=== PATIENT | male | born 1975 | race Caucasian/White ===

== ENCOUNTER 2021-04-23 07:20 | Observation (INO) ==
--- NOTE | 2021-04-23 07:53 | Emergency Department Note ---
History of Present Illness General Chief complaint: Swelling/Edema to Extremity Stated complaint: RETAINING FLUID Time Seen by Provider: 04/23/21 07:35 History of Present Illness 45-year-old male presents to the ED with a chief complaint of exertional dyspnea and increased edema and decreased urine output. The patient states that he has had the symptoms for about 1-1/2 weeks. He reports decreased appetite and some generalized weakness as well as some nausea for about 6 weeks. The patient reports a history of ALL years ago he has gone through treatment and denies any current medical issues other than hypothyroidism. He also reports that recently he has been off his thyroid medication since October due to changes in insurance. He recently restarted it on Saturday. He had a 1 month prescription from a [facility] provider. Home Medications Medication Instructions Recorded Confirmed Type escitalopram oxalate 10 mg tablet 10 mg PO DAILY #30 tab 12/29/19 04/23/21 Rx levothyroxine 50 mcg capsule 50 mcg PO DAILY #30 cap 12/29/19 04/23/21 Rx diphenhydramine 25 1 tab PO Q6H PRN 04/23/21 04/23/21 History mg-acetaminophen 500 mg tablet (Tylenol PM Extra Strength) Allergies Allergy/AdvReac Type Severity Reaction Status Date / Time Cipro AdvReac "agitated" Verified 12/09/12 13:43 ciprofloxacin AdvReac "agitated" Verified 12/29/19 15:33 cyclobenzaprine AdvReac sleep Verified 12/29/19 15:33 [From Flexeril] disturbance diazepam AdvReac "crying" Verified 12/29/19 15:33 Past Med/Surg History Medical History (Updated 04/23/21 @ 10:56 by Yair Griffith MD) ALL (acute lymphocytic leukemia) Anemia Cataracts, bilateral Depression Dyslipidemia Encounter for central line placement Grand mal seizure Hypothyroidism Peripheral neuropathy Shingles Surgical History S/P wisdom tooth extraction Family History Father Diabetes Hypertension Hyperlipidemia Grandmother (Paternal) Cancer brain cancer Mother Breast cancer Cancer non-hodgkins lympoma, ovarian cancer Grandfather (Paternal) Cancer prostate Aunt Cancer 1 maternal aunt with ovarian cancer Breast cancer 2 aunts (maternal) with breast cancer Social History Smoking Status: Never smoker Hx Alcohol Use: Yes (1 scotch a month) Alcohol type: hard liquor Hx Substance Use: No Preferred Language: Cymraes Feels Safe at Home: Yes Review of Systems A total of 10 systems reviewed and were otherwise negative Physical Exam Vital Signs Vital Signs - 24 hr 04/23/21 07:22 04/23/21 09:20 Temperature 37 C Temperature Source Temporal Artery Scan Pulse Rate 100 H Pulse Rate [Left Finger] 86 Pulse Rhythm [Left Finger] Regular Pulse Strength [Left Finger] Normal Respiratory Rate 22 20 Respiratory Effort / Characteristics Non-Labored Spontaneous Respiratory Depth Normal Respiratory Pattern Regular Blood Pressure 150/85 H Blood Pressure [Left Arm] 140/76 Blood Pressure Mean 106 Blood Pressure Mean [Left Arm] 97 Blood Pressure Position Sitting Blood Pressure Position [Left Arm] Sitting Pulse Oximetry 97 98 Oxygen Delivery Method Room Air Sepsis Recent Fever Within 48 Hours No Sepsis New/Unexplained Change in Mental Status No Sepsis Action Taken by Nursing No Action Required CONSTITUTIONAL/VITAL SIGNS: Reviewed / noted above. GENERAL: Non-toxic in appearance. INTEGUMENTARY: Warm, dry, and [place]. HEAD: Normocephalic. EYES: without scleral icterus or trauma. ENT/OROPHARYNX: clear and moist. LYMPHADENOPATHY/NECK: Is supple without lymphadenopathy or meningismus. RESPIRATORY: Clear to auscultation bilaterally. No increased work of breathing. CARDIOVASCULAR: Regular rate and rhythm. GI/ABDOMEN: Soft and nontender. No organomegaly or pulsatile mass. EXTREMITIES: Warm and well perfused. The patient does have bilateral symmetric pedal edema. BACK: No CVA tenderness. NEUROLOGICAL: Intact without focal deficits. PSYCHIATRIC: normal affect. MUSCULOSKELETAL: Normally developed with good muscle tone. TRIAGE NURSING DOCUMENTATION REVIEWED. Course Administered Medications Discontinued Medications Ioversol (Optiray 320 125ml) 120 ml IV ONCE ONE Stop: 04/23/21 09:40 Last Admin: 04/23/21 09:39 Dose: 120 ml Documented by: [id number] Medical Decision Making Differential Diagnosis The differential was considered includes acute myocardial infarction, acute coronary syndrome, myocarditis, pericarditis, pericardial effusions /tamponad, esophageal perforation, pulmonary embolism, pneumonia, pneumothorax, cardiomyopathy, congestive heart, anemia , COPD/asthma exacerbation. Differential includes acute coronary syndrome, myocardial infarction, CVA, TIA, anemia, infection, pneumonia, UTI, pyelonephritis, poor nutrition, dehydration, electrolyte disturbance,hypoglycemia. Medical Records Attestation: I reviewed the patient's medical records. Home Medications Current Medication List: was personally reviewed by me Laboratory Data Attestation: I reviewed the patient's lab results. Result diagrams: 04/23/21 08:25 04/23/21 08:25 Lab Results 04/23/21 04/23/21 04/23/21 Range/Units 08:25 08:25 08:25 WBC 9.93 (4.8-10.8) K/uL RBC 4.75 (4.7-6.1) M/uL Hgb 13.1 L (14.0-18.0) g/dL Hct 41.7 L (42-52) % MCV 87.8 (80-100) fL MCH 27.6 (25-34) pg MCHC 31.4 L (32-36) g/dL RDW Std Deviation 46.0 (36.4-46.3) fL RDW Coeff of [place] 14.3 (11.5-14.5) % Plt Count 224 (130-400) K/uL MPV 11.5 H (7.4-10.4) fL Immature Gran % (Auto) 0.2 % Neut % (Auto) 61.6 % Lymph % (Auto) 27.0 % [place] % (Auto) 8.1 % Eos % (Auto) 2.7 % Baso % (Auto) 0.4 % Neut # (Auto) 6.12 (1.4-6.5) K/uL Lymph # (Auto) 2.68 (1.2-3.4) K/uL [place] # (Auto) 0.80 H (0.11-0.59) K/uL Eos # (Auto) 0.27 (0-0.5) K/uL Baso # (Auto) 0.04 (0-0.2) K/uL Immature Gran # (Auto) 0.02 (0.00-0.02) K/uL PT 11.9 (9.0-12.0) Seconds INR 1.2 H (0.9-1.1) APTT 22.5 (21.0-31.0) Seconds PTT Ratio 0.9 D-Dimer 5230 H* (0-500) ug/L FEU Sodium 141 (136-145) mmol/L Potassium 3.7 (3.5-5.1) mmol/L Chloride 110 H (98-107) mmol/L Carbon Dioxide 21 (21-32) mmol/L Anion Gap 10.0 (3-11) BUN 13 (7-18) mg/dl Creatinine 1.20 (0.6-1.4) mg/dl Est Cr Clr Drug Dosing 121.9 ml/min Est GFR ( Amer) 85.3 ml/min Est GFR (Non-Af Amer) 73.6 ml/min BUN/Creatinine Ratio 11.2 (10-20) Glucose 94 (70-99) mg/dl Calcium 8.7 (8.5-10.1) mg/dl Magnesium 1.9 (1.8-2.4) mg/dl Total Bilirubin 0.9 (0.2-1) mg/dl AST 38 H (15-37) U/L ALT 48 (12-78) U/L Alkaline Phosphatase 75 (45-117) U/L Troponin I 0.036 (0-0.045) ng/ml NT-Pro-B Natriuret Pep 3521 H (0-450) pg/ml Total Protein 6.9 (6.4-8.2) gm/dl Albumin 3.1 L (3.4-5.0) gm/dl Globulin 3.8 (2.5-4.0) gm/dl Albumin/Globulin Ratio 0.8 L (0.9-2) TSH 8.080 H (0.300-4.500) uIu/ml Free T4 1.26 (0.8-1.6) ng/dl Urine Color Urine Appearance (Clear) Urine pH (4.5-7.5) Ur Specific [place] (1.000-1.030) Urine Protein (Negative) Urine Glucose (UA) (Negative) Urine Ketones (Negative) Urine Blood (Negative) Urine Nitrite (Negative) Urine Bilirubin (Negative) Urine Urobilinogen (Negative) Ur Leukocyte Esterase (Negative) Urine WBC (Auto) (0-5) /hpf Urine RBC (Auto) (0-4) /hpf U Hyaline Cast (Auto) (0-5) /lpf U Epithel Cells (Auto) (0-5) /lpf Urine Bacteria (Auto) (Negative) COVID-19 Eval Order SARS-CoV-2 (PCR) (Negative) 04/23/21 04/23/21 04/23/21 Range/Units 08:36 08:52 08:52 WBC (4.8-10.8) K/uL RBC (4.7-6.1) M/uL Hgb (14.0-18.0) g/dL Hct (42-52) % MCV (80-100) fL MCH (25-34) pg MCHC (32-36) g/dL RDW Std Deviation (36.4-46.3) fL RDW Coeff of [place] (11.5-14.5) % Plt Count (130-400) K/uL MPV (7.4-10.4) fL Immature Gran % (Auto) % Neut % (Auto) % Lymph % (Auto) % [place] % (Auto) % Eos % (Auto) % Baso % (Auto) % Neut # (Auto) (1.4-6.5) K/uL Lymph # (Auto) (1.2-3.4) K/uL [place] # (Auto) (0.11-0.59) K/uL Eos # (Auto) (0-0.5) K/uL Baso # (Auto) (0-0.2) K/uL Immature Gran # (Auto) (0.00-0.02) K/uL PT (9.0-12.0) Seconds INR (0.9-1.1) APTT (21.0-31.0) Seconds PTT Ratio D-Dimer (0-500) ug/L FEU Sodium (136-145) mmol/L Potassium (3.5-5.1) mmol/L Chloride (98-107) mmol/L Carbon Dioxide (21-32) mmol/L Anion Gap (3-11) BUN (7-18) mg/dl Creatinine (0.6-1.4) mg/dl Est Cr Clr Drug Dosing ml/min Est GFR ( Amer) ml/min Est GFR (Non-Af Amer) ml/min BUN/Creatinine Ratio (10-20) Glucose (70-99) mg/dl Calcium (8.5-10.1) mg/dl Magnesium (1.8-2.4) mg/dl Total Bilirubin (0.2-1) mg/dl AST (15-37) U/L ALT (12-78) U/L Alkaline Phosphatase (45-117) U/L Troponin I (0-0.045) ng/ml NT-Pro-B Natriuret Pep (0-450) pg/ml Total Protein (6.4-8.2) gm/dl Albumin (3.4-5.0) gm/dl Globulin (2.5-4.0) gm/dl Albumin/Globulin Ratio (0.9-2) TSH (0.300-4.500) uIu/ml Free T4 (0.8-1.6) ng/dl Urine Color Dark Yellow Urine Appearance Clear (Clear) Urine pH 5.5 (4.5-7.5) Ur Specific [place] 1.021 (1.000-1.030) Urine Protein 3+ H (Negative) Urine Glucose (UA) Negative (Negative) Urine Ketones Trace H (Negative) Urine Blood Negative (Negative) Urine Nitrite Negative (Negative) Urine Bilirubin Negative (Negative) Urine Urobilinogen Negative (Negative) Ur Leukocyte Esterase Negative (Negative) Urine WBC (Auto) 1-5 (0-5) /hpf Urine RBC (Auto) 0-4 (0-4) /hpf U Hyaline Cast (Auto) 1-5 (0-5) /lpf U Epithel Cells (Auto) 20-30 H (0-5) /lpf Urine Bacteria (Auto) Negative (Negative) COVID-19 Eval Order Covid19 at [facility] SARS-CoV-2 (PCR) NEGATIVE (Negative) Imaging Data Radiologist's Impression: Chest X-Ray 04/23/21 07:45 XR chest 1V portable CLINICAL HISTORY: Dyspnea TECHNIQUE: Single frontal radiograph of the chest was obtained. Comparison: Comparison is made to chest one view 01/08/2020 FINDINGS: No lines and tubes are seen. Cardiomegaly is noted. The lungs are clear. No evidence of pleural effusion or pneumothorax. IMPRESSION: No acute chest disease. ACT 112: Negative or not required by law. Electronically signed by: Luis Estrada M.D. 04/23/2021 8:05 AM Chest CTA 04/23/21 08:57 CT angio chest PE protocol CLINICAL HISTORY: sob,r/o pe TECHNIQUE: Multidetector row helical CT of the chest was performed. Coronal and sagittal reformations were obtained. Automated dose lowering techniques and/or adjustment according to patient size were utilized for this exam. Comparison: Comparison is made to CT chest 08/05/2007 FINDINGS: Lungs and pleura: There are small bilateral pleural effusions, right greater than left, with underlying atelectasis. Heart and pericardium: There is cardiomegaly without evidence of pericardial effusion. Physiologic pericardial fluid is seen. There is reflux of contrast into the inferior vena cava. Vessels: No evidence of pulmonary embolism. Mediastinum and tatum: Subcentimeter lymph nodes are seen. Chest wall and lower neck: Unremarkable. Abdomen: A hiatal hernia is seen. Bones: Degenerative changes in the thoracic spine. IMPRESSION: 1. No evidence of pulmonary embolism. 2. Cardiomegaly with heart failure. 3. Right greater than left small pleural effusions with associated atelectasis. ACT 112: Negative or not required by law. Electronically signed by: Luis Estrada M.D. 04/23/2021 9:59 AM ECG Data Attestation: I personally reviewed and interpreted this ECG as follows: Additional Comments: Twelve-lead EKG: Per my interpretation shows a normal sinus rhythm at a rate of 96. Poor R wave progression. No ST elevation. No PVCs. Normal QTC. MDM Narrative 45-year-old male presents to the ED with a chief complaint of shortness of breath, dyspnea on exertion, nausea, having a sensation that is full of fluid and decreased urine output for about 6 weeks. His exam does reveal some pedal edema. Lungs were clear. He is in no respiratory distress while at rest. Vital signs are stable. He recently restarted his hypothyroid medication 2 days ago. He had not been taking this for about 5 months. The patient's free T4 was normal. TSH was elevated. CBC is unremarkable. D-dimer was elevated. Complete metabolic panel was unremarkable. A chest x-ray did not show acute process. BNP is 3521. EKG shows a normal sinus rhythm at a rate of 96 with a first-degree AV block and a anterolateral infarct pattern that does not appear acute but is new from December 29, 2019. Troponin was negative. Covid test was negative. CT scan of the chest did not show PEs. Urineshowed 3+ protein. Ultrasounds of the legs have been ordered. The patient was treated with Lasix IV 20 mg. Because of his symptoms and concern for congestive heart failure, the patient will be seen for further inpatient evaluation and care by the hospitalist. Impression & Plan CHF (congestive heart failure), Pedal edema, WHYTE (dyspnea on exertion), History of leukemia Discharge Plan Visit Data Chief Complaint: Swelling/Edema to Extremity Stated Complaint: RETAINING FLUID ED Provider: Kirit Webb Discharge Problem: CHF (congestive heart failure), Pedal edema, WHYTE (dyspnea on exertion), History of leukemia Patient Disposition: Being Evaluated by Hospitalist Forms Stand Alone Forms: [facility] [place] [employer] Prescriptions Prescriptions: No Action levothyroxine 50 mcg capsule 50 mcg PO DAILY Qty: 30 RF: 0 escitalopram oxalate 10 mg tablet 10 mg PO DAILY Qty: 30 RF: 0 diphenhydramine-acetaminophen [Tylenol PM Extra Strength] 25-500 mg Tablet 1 tab PO Q6H PRN (Reason: Pain) RF: 0 Referrals Referrals: Alexandru Calhoun [Primary Care Provider] -
--- NOTE | 2021-04-23 08:06 | XRay Report ---
XR chest 1V portable CLINICAL HISTORY: Dyspnea TECHNIQUE: Single frontal radiograph of the chest was obtained. Comparison: Comparison is made to chest one view 01/08/2020 FINDINGS: No lines and tubes are seen. Cardiomegaly is noted. The lungs are clear. No evidence of pleural effus ion or pneumothorax. IMPRESSION: No acute chest disease. ACT 112: Negative or not required by law. Electronically signed by: Luis Estrada M.D. 04/23/2021 8:05 AM
[2021-04-23 08:35] LABS: Basophils # (auto) 0.04 K/uL (0-0.2); Basophils % (auto) 0.4 %; Eosinophils # (auto) 0.27 K/uL (0-0.5); Eosinophils % (auto) 2.7 %; Hematocrit (blood only) 41.7 % (42-52); Hemoglobin 13.1 g/dL (14.0-18.0); Immature Granulocytes # (auto) 0.02 K/uL (0.00-0.02); Immature Granulocytes % (auto) 0.2 %; Lymphocytes # (auto) 2.68 K/uL (1.2-3.4); Mean Corpuscular Hemoglobin 27.6 pg (25-34); Mean Corpuscular Hgb Conc 31.4 g/dL (32-36); Mean Corpuscular Volume 87.8 fL (80-100); Mean Platelet Volume 11.5 fL (7.4-10.4); Monocytes % (auto) 8.1 %; Neutrophils # (auto) 6.12 K/uL (1.4-6.5); Neutrophils % (auto) 61.6 %; Platelet Count 224 K/uL (130-400); RDW Coefficient of Variation 14.3 % (11.5-14.5); Red Blood Count 4.75 M/uL (4.7-6.1); White Blood Count 9.93 K/uL (4.8-10.8)
[2021-04-23 08:52] LABS: Albumin Level 3.1 gm/dl (3.4-5.0); BUN Creatinine Ratio 11.2 (10-20); Calcium 8.7 mg/dl (8.5-10.1); Creatinine Clr Calc Pharmacy 121.9 ml/min; Est GFR (African American) 85.3 ml/min; Est GFR (Non-African American) 73.6 ml/min; Magnesium 1.9 mg/dl (1.8-2.4); Potassium 3.7 mmol/L (3.5-5.1)
[2021-04-23 08:53] LABS: INR 1.2 (0.9-1.1); Partial Thromboplastin Ratio 0.9; Partial Thromboplastin Time 22.5 Seconds (21.0-31.0); Prothrombin Time 11.9 Seconds (9.0-12.0)
[2021-04-23 08:57] LABS: D Dimer 5230 ug/L FEU (0-500)
[2021-04-23 08:59] LABS: Appearance Urine Clear (Clear); Bacteria Urine Automated Negative (Negative); Bilirubin Urine Negative (Negative); Blood Urine Negative (Negative); Color Urine Dark Yellow; Epithelial Cell Urine Auto 20-30 /lpf (0-5); Glucose Urine UA Negative (Negative); Ketones Urine Trace (Negative); Leukocyte Esterase Urine Negative (Negative); Nitrite Urine Negative (Negative); Protein Urine 3+ (Negative); RBC Urine Automated 0-4 /hpf (0-4); Specific Gravity Urine 1.021 (1.000-1.030); Urobilinogen Urine Negative (Negative); pH Urine 5.5 (4.5-7.5)
[2021-04-23 09:02] LABS: Albumin Globulin Ratio 0.8 (0.9-2); Bilirubin,Total 0.9 mg/dl (0.2-1); Globulin 3.8 gm/dl (2.5-4.0); Thyroid Stimulating Hormone 8.08 uIu/ml (0.300-4.500); Total Protein 6.9 gm/dl (6.4-8.2); Troponin I 0.036 ng/ml (0-0.045)
[2021-04-23 09:15] LABS: T4 Free Thyroxine 1.26 ng/dl (0.8-1.6)
[2021-04-23] MEDS ORDERED: OPTIRAY 320 125ml IV ONE (09:39)
--- NOTE | 2021-04-23 10:00 | CT Scan Report ---
CT angio chest PE protocol CLINICAL HISTORY: sob,r/o pe TECHNIQUE: Multidetector row helical CT of the chest was performed. Coronal and sagittal reformations were obtained. Automated dose lowering techniques and/or adjustment according to patient size were u tilized for this exam. Comparison: Comparison is made to CT chest 08/05/2007 FINDINGS: Lungs and pleura: There are small bilateral pleural effusions, right greater than left, with underlyi ng atelectasis. Heart and pericardium: There is cardiomegaly without evidence of pericardial effusion. Physiologic pe ricardial fluid is seen. There is reflux of contrast into the inferior vena cava. Vessels: No evidence of pulmonary embolism. Mediastinum and tatum: Subcentimeter lymph nodes are seen. Chest wall and lower neck: Unremarkable. Abdomen: A hiatal hernia is seen. Bones: Degenerative changes in the thoracic spine. IMPRESSION: 1. No evidence of pulmonary embolism. 2. Cardiomegaly with heart failure. 3. Right greater than left small pleural effusions with associated atelectasis. ACT 112: Negative or not required by law. Electronically signed by: Luis Estrada M.D. 04/23/2021 9:59 AM
[2021-04-23] MEDS ORDERED: FUROSEMIDE INJ 20 MG/2 ML VIAL IV ONE (10:20)
--- NOTE | 2021-04-23 10:36 | History & Physical Report ---
Date of Service April 23, 2021 Assessment & Plan (1) Congestive heart failure: Plan: Minor is a 45-year-old male with a history of acute lymphoid leukemia in remission, allogenic bone marrow transplantation, peripheral neuropathy, BMI greater than 45, and fatigue who presented to the ER with exertional dyspnea and increased edema with reduced urine output. He had had the symptoms for 7-10 days and associated with decreased appetite and globalized fatigue. History of acute lymphoid leukemia in remission many years ago, also history of hypothyroid without medication since October recently restarted on Saturday. Congestive heart failure suspect precipitated by high salt load, at risk for chemotherapy/radiation induced nonischemic cardiomyopathy Unclear if diastolic versus systolic, ischemic versus cardiomyopathy of history of chemotherapy? Patient recently started a preprepared keto meal diet 3 weeks ago with very high salt content of meals. Was unaware that high salt could contribute to fluid retention. TTE pending BNP 3521 CTA: No evidence of pulmonary embolism, cardiomegaly with heart failure, right greater than left small pleural effusions and atelectasis CXR: No acute disease Baseline EKG 12/29/2019: Sinus with first-degree AV block, incomplete left bundle block, T wave inversion in lateral leads QTC 470 EKG 04/23/2021: Normal sinus rhythm, QT 500, resolution of T wave inversions Lasix 40 mg x 1 given prior to transfer Continue Lasix 20 mg IV twice daily, BMP daily Hemoglobin 13.1 D-dimer 5230 (no evidence of PE, no DVT on Doppler). 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 Chemo related nonischemic cardiomyopathy? 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 daily (8) Grand mal seizure: Plan: History of grand mal seizure while on chemotherapy, was on antiepileptics for 1 year No subsequent seizures Not on antiepileptics at this time Follow clinically Plan: DVT prophylaxis: Lovenox Diet: Heart healthy Disposition: Medical/surgical with telemetry CODE STATUS: Full code History of Present Illness Primary Care Provider: Alexandru Calhoun Minor is a 45-year-old male with a history of acute lymphoid leukemia in remission, allogenic bone marrow transplantation, peripheral neuropathy, BMI greater than 45, and fatigue who presented to the ER with exertional dyspnea and increased edema with reduced urine output. He had had the symptoms for 7-10 days and associated with decreased appetite and globalized fatigue. History of acute lymphoid leukemia in remission many years ago, also history of hypothyroid without medication since October recently restarted on Saturday. History of ALL on 'a bunch of pretty nasty stuff' cyclophosphamade, MTX, doxorubicin, etc. had radiation x10 weeks of radiation + chemo with radiation penetration to the heart. No cardiomyopathy/CHF at the time. 3-4 mo heartburn at 4am which improves with calcium carbonate a little bit. Was treated by [facility] oncology and saw Dr. Keys, records not available in [place] but should be available through [place] system, request sent. Patient reports that following above treatment for his CLL and recurrence he had complete bone marrow depletion with a allograft from his sister. Had "bone marrow worse "for your after, but ultimately, my sisters bone marrow 1 out "and he has been in remission for over a decade not requiring immunosuppressants has not been on tacrolimus in over 10 years. Has never had a problem with heart failure, fluid retention, or leg swelling before this. Swelling in his legs is bilateral and increased in the last week. He did recently start a keto diet which has male in preprepared meals with a high salt load. He has been eating these for the last 3 weeks, which may have contributed to a dietary salt overload precipitating CHF which she is at risk for due to the above. Denies chest pain, chest pressure, difficulty breathing, shortness of breath, fever, chills, night sweats, abdominal pain at time of assessment. Endorses decreased urinary output in the last week. Medical History: Reviewed. Medications: Reviewed. Surgical History: Reviewed Allergies: Reviewed.. Social History: No tobacco us ehx. Rare social etoH use. No recreational substance use. No meidcal marijuana use. Code Status: Full Code Allergies Allergy/AdvReac Type Severity Reaction Status Date / Time Cipro AdvReac "agitated" Verified 12/09/12 13:43 ciprofloxacin AdvReac "agitated" Verified 12/29/19 15:33 cyclobenzaprine AdvReac sleep Verified 12/29/19 15:33 [From Flexeril] disturbance diazepam AdvReac "crying" Verified 12/29/19 15:33 Home Medications Medication Instructions Recorded Confirmed Type escitalopram oxalate 10 mg tablet 10 mg PO DAILY #30 tab 12/29/19 04/23/21 Rx levothyroxine 50 mcg capsule 50 mcg PO DAILY #30 cap 12/29/19 04/23/21 Rx diphenhydramine 25 1 tab PO Q6H PRN 04/23/21 04/23/21 History mg-acetaminophen 500 mg tablet (Tylenol PM Extra Strength) Past Med/Surg History Medical History (Updated 04/23/21 @ 11:11 by Yair Griffith MD) ALL (acute lymphocytic leukemia) Anemia Anxiety and depression Cataracts, bilateral Depression Dyslipidemia Encounter for central line placement Grand mal seizure Hypothyroidism Peripheral neuropathy Shingles Surgical History S/P wisdom tooth extraction Family History Father Diabetes Hypertension Hyperlipidemia Grandmother (Paternal) Cancer brain cancer Mother Breast cancer Cancer non-hodgkins lympoma, ovarian cancer Grandfather (Paternal) Cancer prostate Aunt Cancer 1 maternal aunt with ovarian cancer Breast cancer 2 aunts (maternal) with breast cancer Social History Smoking Status: Never smoker Hx Alcohol Use: Yes (1 scotch a month) Alcohol type: hard liquor Hx Substance Use: No Preferred Language: Lao Feels Safe at Home: Yes Review of Systems Review of Systems: All systems reviewed & are unremarkable except as noted in HPI & below Physical Exam Physical Exam: General: A&Ox3. NAD. Cooperative. HEENT: Atraumatic, normocephalic. Visual acuity and hearing grossly intact. Pupils equal and reactive to light. Pulm: Bibasilar crackles/moderate air movement. No overt wheezes/rales/rhonchi symmetrical chest rise. No increase work of breathing. No respiratory distress. Cardiac: RRR, -mrg. Radial pulses intact and symmetrical. Abdominal: Nontender, nondistended, soft. BS present. Extremities: 1+ pitting edema in the legs bilaterally. Sensation is soft touch in hands and lateral lower extremity intact grossly bilaterally. Wound/Ostomy Nurse strength, ankle dorsiflexion/plantarflexion/5/5. Results & Data Results & Data ([facility]) Vital Signs (Past 12 Hours) Vital Signs Temp Pulse Pulse Resp BP BP Pulse Ox 04/23/21 09:20 86 20 140/76 98 04/23/21 07:22 37 C 100 H 22 150/85 H 97 PG Care Time/CCT Total # of Minutes Spent Total Time Spent with Patient: Total time spent is greater than 50% in coordination of care (as documented) at patient's floor/unit and/or counseling patient: Coding Level of Care Code 62652 Initial Inpt Care Lvl 3 Diagnoses Congestive heart failure I50.9 Obese E66.9 Acute lymphoid leukemia in remission C91.01 Allogeneic bone marrow transplantation Z94.81 Disease related peripheral neuropathy G62.89 Hypothyroidism E03.9 Anxiety and depression F41.9; F32.9 Grand mal seizure G40.409
--- NOTE | 2021-04-23 11:30 | Ultrasound Report ---
US venous doppler LE BI CLINICAL HISTORY: leg swelling COMPARISON: None available at the time of this dictation. TECHNIQUE: Bilateral lower extremity real-time compression venous ultrasound with Color Doppler imagi ng. Utilizing real-time ultrasonic imaging multiple real time high-resolution ultrasonic images with comp ression and noncompression maneuvers of the deep venous system in addition to color doppler imaging w ere performed from the common femoral vein through the proximal calf veins. FINDINGS: Currently there is normal compressibility of the deep venous system from the common femoral vein thro ugh the proximal calf veins. No current evidence of acute thrombosis is identified. Impression: No evidence of deep venous thrombus. ACT 112: Negative or not required by law. Electronically signed by: Luis Estrada M.D. 04/23/2021 11:28 AM
[2021-04-23] MEDS ORDERED: FUROSEMIDE 40 MG/4 ML VIAL IV ONE (11:55)
[2021-04-23] MEDS ORDERED: ACETAMINOPHEN 325 MG TAB PO PRN (13:04)
[2021-04-23] MEDS: POTASSIUM CHLORIDE CRTAB 20 MEQ TABCR PO SCH ×2 (15:32→21:27)
[2021-04-23] MEDS: ENOXAPARIN INJ 40 MG/0.4 ML SYR SQ SCH (15:32)
--- NOTE | 2021-04-23 16:43 | XCELERA ---
[id number]
[2021-04-23] MEDS: FUROSEMIDE INJ 20 MG/2 ML VIAL IV SCH ×2 (17:27→21:26)
[2021-04-24] MEDS: ENOXAPARIN INJ 40 MG/0.4 ML SYR SQ SCH ×2 (01:19→14:47)
[2021-04-24] MEDS ORDERED: LEVOTHYROXINE SODIUM 50 MCG TABLET PO SCH (06:30)
[2021-04-24 08:07] LABS: Basophils # (auto) 0.03 K/uL (0-0.2); Basophils % (auto) 0.3 %; Eosinophils # (auto) 0.22 K/uL (0-0.5); Eosinophils % (auto) 2.4 %; Hematocrit (blood only) 41.1 % (42-52); Hemoglobin 12.9 g/dL (14.0-18.0); Immature Granulocytes # (auto) 0.02 K/uL (0.00-0.02); Immature Granulocytes % (auto) 0.2 %; Lymphocytes # (auto) 2.53 K/uL (1.2-3.4); Lymphocytes % (auto) 27.3 %; Mean Corpuscular Hemoglobin 27.3 pg (25-34); Mean Corpuscular Hgb Conc 31.4 g/dL (32-36); Mean Corpuscular Volume 87.1 fL (80-100); Mean Platelet Volume 12.4 fL (7.4-10.4); Monocytes # (auto) 0.79 K/uL (0.11-0.59); Monocytes % (auto) 8.5 %; Neutrophils # (auto) 5.68 K/uL (1.4-6.5); Neutrophils % (auto) 61.3 %; Platelet Count 207 K/uL (130-400); RDW Coefficient of Variation 14.2 % (11.5-14.5); RDW Standard Deviation 45.1 fL (36.4-46.3); Red Blood Count 4.72 M/uL (4.7-6.1); White Blood Count 9.27 K/uL (4.8-10.8)
--- NOTE | 2021-04-24 08:14 | Hospitalist Progress Note ---
Date of Service April 24, 2021 Assessment & Plan Admission and Anticipated Discharge Date Admission Date: April 23, 2021 Results & Data Results & Data ([facility]) Vital Signs (Past 12 Hours) Vital Signs Temp Pulse Resp BP Pulse Ox 04/24/21 04:42 36.5 C 92 H 18 123/81 95 04/23/21 22:42 36.7 C 96 H 20 97/68 L 99
[2021-04-24 08:35] LABS: BUN Creatinine Ratio 11.2 (10-20); Calcium 9.1 mg/dl (8.5-10.1); Creatinine Clr Calc Pharmacy 116.8 ml/min; Est GFR (Non-African American) 70.8 ml/min; Potassium 3.3 mmol/L (3.5-5.1)
[2021-04-24 08:38] LABS: Albumin Globulin Ratio 0.9 (0.9-2); Bilirubin,Total 1.3 mg/dl (0.2-1); Globulin 3.5 gm/dl (2.5-4.0); Total Protein 6.5 gm/dl (6.4-8.2)
[2021-04-24] MEDS: ESCITALOPRAM OXALATE 10 MG TAB PO SCH ×2 (08:40→08:53)
[2021-04-24] MEDS: POTASSIUM CHLORIDE CRTAB 20 MEQ TABCR PO SCH ×2 (08:52→14:47)
[2021-04-24] MEDS: FUROSEMIDE INJ 20 MG/2 ML VIAL IV SCH (08:53)
--- NOTE | 2021-04-24 11:50 | Electrocardiogram Report ---
Test Reason : Blood Pressure : / mmHG Vent. Rate : 096 BPM Atrial Rate : 096 BPM P-R Int : 208 ms QRS Dur : 114 ms QT Int : 396 ms P-R-T Axes : 078 179 081 degrees QTc Int : 500 ms Normal sinus rhythm with 1st degree AV block Nonspecific ST abnormality Prolonged QT Abnormal ECG When compared with ECG of 29-DEC-2019 14:45, T wave inversion no longer evident in Lateral leads Confirmed by Rafael Perry ([id number]) on 04/24/2021 11:49:36 AM Referred By: REFERRED SELF Confirmed By:Grayson Perry
--- NOTE | 2021-04-24 15:47 | Discharge Summary ---
Date of Service April 24, 2021 Admission HPI Per Admitting Provider Minor is a 45-year-old male with a history of acute lymphoid leukemia in remission, allogenic bone marrow transplantation, peripheral neuropathy, BMI greater than 45, and fatigue who presented to the ER with exertional dyspnea and increased edema with reduced urine output. He had had the symptoms for 7-10 days and associated with decreased appetite and globalized fatigue. History of acute lymphoid leukemia in remission many years ago, also history of hypothyroid without medication since October recently restarted on Saturday. History of ALL on 'a bunch of pretty nasty stuff' cyclophosphamade, MTX, doxorubicin, etc. had radiation x10 weeks of radiation + chemo with radiation penetration to the heart. No cardiomyopathy/CHF at the time. 3-4 mo heartburn at 4am which improves with calcium carbonate a little bit. Was treated by [facility] oncology and saw Dr. Keys, records not available in [facility] but should be available through [facility] system, request sent. Patient reports that following above treatment for his CLL and recurrence he had complete bone marrow depletion with a allograft from his sister. Had "bone marrow worse "for your after, but ultimately, my sisters bone marrow 1 out "and he has been in remission for over a decade not requiring immunosuppressants has not been on tacrolimus in over 10 years. Has never had a problem with heart failure, fluid retention, or leg swelling before this. Swelling in his legs is bilateral and increased in the last week. He did recently start a keto diet which has male in preprepared meals with a high salt load. He has been eating these for the last 3 weeks, which may have contributed to a dietary salt overload precipitating CHF which she is at risk for due to the above. Denies chest pain, chest pressure, difficulty breathing, shortness of breath, fever, chills, night sweats, abdominal pain at time of assessment. Endorses decreased urinary output in the last week. Medical History: Reviewed. Medications: Reviewed. Surgical History: Reviewed Allergies: Reviewed.. Social History: No tobacco us ehx. Rare social etoH use. No recreational substance use. No meidcal marijuana use. Code Status: Full Code Admission Exam Per Admitting Provider General: A&Ox3. NAD. Cooperative. HEENT: Atraumatic, normocephalic. Visual acuity and hearing grossly intact. Pupils equal and reactive to light. Pulm: Bibasilar crackles/moderate air movement. No overt wheezes/rales/rhonchi symmetrical chest rise. No increase work of breathing. No respiratory distress. Cardiac: RRR, -mrg. Radial pulses intact and symmetrical. Abdominal: Nontender, nondistended, soft. BS present. Extremities: 1+ pitting edema in the legs bilaterally. Sensation is soft touch in hands and lateral lower extremity intact grossly bilaterally. Stock Feeder strength, ankle dorsiflexion/plantarflexion/5/5. Principal Diagnosis Cardiomyopathy Discharge Exam Constitutional: well-appearing, no acute distress HEENT: NCAT, no conjunctival injection CV: regular rhythm, no murmur appreciated, extremities well-perfused, 1+ pitting LE edema bilaterally Resp: CTABL, no wheezes/rales/rhonchi appreciated, no increased work of breathing MSK: no gross deformities appreciated Skin: warm, dry, no rash appreciated Neuro: AOx4, no focal neurological deficits appreciated Discharge Data Allergies Allergy/AdvReac Type Severity Reaction Status Date / Time Cipro AdvReac "agitated" Verified 12/09/12 13:43 ciprofloxacin AdvReac "agitated" Verified 12/29/19 15:33 cyclobenzaprine AdvReac sleep Verified 12/29/19 15:33 [From Flexeril] disturbance diazepam AdvReac "crying" Verified 12/29/19 15:33 Consultations 04/24/21 09:44 Consult Cardiology Routine Ordered Studies 04/23/21 08:57 CT angio chest PE protocol Stat 04/23/21 10:14 US venous doppler LE BI Stat Hospital Course (1) Cardiomyopathy: Echocardiogram performed upon admission revealed global hypokinesis with an EF of 15-20%, without prior echo available for comparison. Patient's symptoms dramatically improved with diuresis. Patient admitted recent dietary indiscretion (very high sodium intake) which likely led to the fluid overload that caused patient's symptoms, and patient responded well to education regarding sodium intake and CHF. Cardiology was consulted and felt patient's cardiomyopathy could be secondary to prior chemotherapy and/or radiation exposur e during patient's therapy for ALL between 1997 and 2001. Cardiology scheduled patient for outpatient CT angiography in order to exclude coronary disease. Patient was started on metoprolol succinate and losartan during this hospitalization, with PCP and cardiology follow-up scheduled. Patient was also provided with lasix 40mg to use on an as-needed basis for fluid overload symptoms. Patient was discharged on hospital day one with follow-up scheduled as mentioned. Of note, patient may benefit from a cancer survivor monitoring program which could identify various medical surveillance testing (e.g. yearly echo) depending on patient's specific chemotherapy/radiation exposure history (ANGELA Izaguirre is one local provider who offers this). Total Time Total Time Spent Total Time Spent (In Minutes): see attending documentation Discharge Plan Discharge Items Patient Disposition: Home - Self-Care Reason For Visit: CONGESTIVE HEART FAILURE, DYSPNEA, LEG EDEMA Discharge Diagnosis: congestive heart failure Activity: Per Instructions section Lifting: None Exercise/Sports: Gradually increase as tolerated Driving/Machine Use: No limitations Weightbearing: Full weightbearing Non-emergency contact: Primary Care Provider and [employer] Person Call non-emergency contact if: you have any medication questions and your symptoms worsen Follow-up/Referrals: Lance Perry MD [Physician] - (2 weeks) Alexandru Calhonu [Primary Care Provider] - (Please call your primary care to schedule a hospital follow up appointment.) Diet: Heart Healthy and Low Sodium (2gm) Fluids: 2000ml (8 cups) Addtl Attending Provider Instructions: You were admitted to the hospital for trouble breathing, and found on your echocardiogram that your heart is not pumping as well as is expected. This is suspected to be due to your chemotherapy and radiation from many years ago. You were seen by Dr. Perry, the [employer] Person. He is working to get you seen in the office in about 2 weeks for follow up. He is working on the next steps in testing to help follow your heart function. He has also recommended starting the following medications: 1) Metoprolol succinate; 25 milligrams once daily. This is a medication that helps offload stress on the heart when it is not pumping as well. 2) Losartan; 25 milligrams once daily. This is a medication that helps you hold onto potassium, and keeps your blood pressure well controlled. 3) Furosemide; 40 milligrams as needed. Please take note of your "dry weight" when you go home. If you notice that you have gained greater than 5 pounds, and/or you are starting to notice more leg swelling or shortness of breath, please take one of these pills. If you are noticing several days in the row that you are taking the pills, please call your primary care doctor and the Cardiology office. The biggest intervention that you can make is to decrease your salt intake. This means trying to avoid salty meats or processed foods, canned veggies/soups, "TV dinners", and meat sticks. Keep an eye on the labels on the foods you eat and the portion sizes. You should try to keep under a total of 2000 milligrams a day for sodium intake. You will have follow up this week with Dr. Willi Calhoun's office. If you do not hear from their office by end of day tomorrow, please call [phone] for an appointment. Pending Studies at Discharge: No Stand-Alone Forms: My [facility], Smoking Cessation Medications and DC Order Prescriptions: New metoprolol succinate 25 mg tablet extended release 24 hr 25 mg PO DAILY Qty: 30 RF: 0 losartan 25 mg tablet 25 mg PO DAILY Qty: 30 RF: 0 furosemide [Lasix] 40 mg tablet 40 mg PO DAILY PRN (Reason: weight gain) Qty: 20 RF: 0 Continued levothyroxine 50 mcg capsule 50 mcg PO DAILY Qty: 30 RF: 0 escitalopram oxalate 10 mg tablet 10 mg PO DAILY Qty: 30 RF: 0 diphenhydramine-acetaminophen [Tylenol PM Extra Strength] 25-500 mg Tablet 1 tab PO Q6H PRN (Reason: Pain) RF: 0 Discharge Orders: Discharge Order (Routine); Ordered 04/24/21 Ordered By: Donell Perez Admission Data Admit Date/Time: 04/23/21 11:17 Attending Provider: Jodi Manzano Admit Provider: Yair Griffith Primary Care Provider: Alexandru Calhoun Other Providers: Silvestre Cloud ; Bari Cole ; Hiren Perez ; Zeeshan Velasquez ; Prieto Gamble Sandy M. ; Dyana Torres ; Lance Cormier ; Mina Capellan ; Lance Perry ; Adrian Frey ; Jefry Bo ; Belinda Nelson ; Vikash Arteaga ; Citlaly Cadet ; Gerard Rothman Jr Other Interventions: Discharge Summary Assessment (RN) Last Done: 04/24/21 15:52 Supervising Physician Co-Signing Physician Notes Patient seen and examined with PGY 2 DR. Perez. Agree with history, exam findings, assessment and plan of care as outlined. In brief, Minor is a 45-year-old male with history of acute lymphoblastic leukemia status post aloe BMT, peripheral neuropathy and hypothyroidism who is admitted with orthopnea, exertional dyspnea, lower extremity edema. Today, he feels that his breathing is improved and his swelling in his legs has improved as well. He denies any chest pain or dyspnea. Vital signs and nursing notes reviewed. Heart with a regular rate and rhythm. Trace lower extremity edema bilaterally. Lungs are clear to auscultation in all lung shelton. Abdomen is soft and nontender. No signs of ascites. Labs and imaging were reviewed. 1. Acute heart failure with reduced ejection fraction. Echocardiogram today shows an EF of 15 to 20% with severe global hypokinesis with septal dyskinesis, left ventricle and left atrium are dilated. He received 40 mg of IV Lasix in the ED then received another dose of IV Lasix on the floor. It is possible that this new cardiomyopathy may be secondary to either mantle radiation or cardiotoxic doxorubicin which was part of his ALL and transplant chemotherapy regimen. 2. Hypothyroidism. TSH 8. Continue Synthroid 50 mcg as this was recently restarted. 3. ALL status post allo BMT. Discussed with the patient that he may benefit from a long-term cancer survivorship program. If he wishes to pursue this, Yuridia Kwan would be able to provide this service. We can obtain his oncology records from [facility] to determine his total radiation dose as well as his total dose of any doxorubicin and other chemotherapeutic agents. Dispo: Discharge home today. I personally spent 35 minutes discharge planning for this patient today. He will need to follow-up with his PCP in the next 7 to 10 days. He will need to follow-up with cardiology in 2 weeks. Resident Activity Tracking Resident Involvement: Resident Care Provided Care Provided: [facility]
--- NOTE | 2021-04-24 17:27 | Cardiology Consultation ---
Date of Consultation April 24, 2021 Assessment & Plan (1) Congestive heart failure: (2) Cardiomyopathy: (3) Mitral regurgitation: 1. Cardiomyopathy: He has a newly diagnosed cardiomyopathy. He has global hypokinesis in his degree of LV dysfunction is quite severe. This undoubtedly resulted in his recent symptoms. The chronicity of the LV dysfunction is not clear. He certainly had a decompensation associated with high sodium intake recently. He has had some symptoms of exercise intolerance over the preceding months, but has been notably more sedentary as well. The etiology of the cardiomyopathy is unclear. Radiation to the mediastinum certainly puts him at risk of coronary disease, specifically ostial and proximal coronary disease. While he does not endorse symptoms of angina, I think it is important to exclude coronary disease as an etiology given his history. We di scussed options for evaluation to include coronary angiography, CT angiography or perfusion imaging. I would favor CT angiography and will send the appropriate referral. This can be performed in the outpatient setting. No evidence of an acute coronary syndrome. He does not appear to drink heavily, there is no evidence of a stress-induced cardiomyopathy, coronary syndrome or myocarditis. I do not believe this is likely a viral phenomenon although he did have some upper respiratory symptoms recently. His history of chemotherapy with anthracycline is a certainly concerning. At this point our treatment will be standard medical therapy and evaluation of his coronaries. He has been started on metoprolol succinate and losartan. Will continue titrating his medications in the outpatient setting according to his tolerance. 2. Congestive heart failure: He presented with signs of pulmonary edema and hypovolemia. He underwent aggressive diuresis and feels much better. He is very reliable individual in given the resolution of his symptoms and normal examination he likely can manage his fluid with diuretics according to his weight at home. He was advised to follow a low-sodium diet. 3. Mitral regurgitation: Mild History of Present Illness Reason for Consultation: Congestive heart failure Requesting Physician: Chris Attending Physician: Jodi Manzano DO History of Present Illness The patient is a 45-year-old gentleman with a remote history of acute lymphocytic leukemia who has been experiencing symptoms of progressive dyspnea over several days. Patient states that in July of this year he was very active been able to perform moderate to significant exertion. 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 Some of this involved less responsibilities at work. He has been more sedentary over the past few months. He reports suffering from pneumonia approximately 3 weeks ago. Subsequent to that his breathing has become progressively worse he also noted the development of both lower extremity and abdominal edema. He presented to the emergency room for evaluation and was felt to have an element of hypovolemia. He underwent aggressive diuresis with essential resolution of his symptoms. Patient states that he also becomes quite dizzy if he bends over and stands up rapidly. This appears to be a longstanding issue. He did not describe syncope. He has not had palpitations recently. He has not had symptoms of chest discomfort. Allergies Allergy/AdvReac Type Severity Reaction Status Date / Time Cipro AdvReac "agitated" Verified 12/09/12 13:43 ciprofloxacin AdvReac "agitated" Verified 12/29/19 15:33 cyclobenzaprine AdvReac sleep Verified 12/29/19 15:33 [From Flexeril] disturbance diazepam AdvReac "crying" Verified 12/29/19 15:33 Home Medications Medication Instructions Recorded Confirmed Type escitalopram oxalate 10 mg tablet 10 mg PO DAILY #30 tab 12/29/19 04/23/21 Rx levothyroxine 50 mcg capsule 50 mcg PO DAILY #30 cap 12/29/19 04/23/21 Rx diphenhydramine 25 1 tab PO Q6H PRN 04/23/21 04/23/21 History mg-acetaminophen 500 mg tablet (Tylenol PM Extra Strength) furosemide 40 mg tablet (Lasix) 40 mg PO DAILY PRN #20 tab 04/24/21 Rx losartan 25 mg tablet 25 mg PO DAILY #30 tab 04/24/21 Rx metoprolol succinate 25 mg 25 mg PO DAILY #30 tab 04/24/21 Rx tablet,extended release 24 hr Patient History Medical History (Updated 04/24/21 @ 17:22 by Lance Perry MD) ALL (acute lymphocytic leukemia) Anemia Anxiety and depression Cataracts, bilateral Depression Dyslipidemia Encounter for central line placement Grand mal seizure Hypothyroidism Peripheral neuropathy Shingles Surgical History S/P wisdom tooth extraction Family History Father Diabetes Hypertension Hyperlipidemia Grandmother (Paternal) Cancer brain cancer Mother Breast cancer Cancer non-hodgkins lympoma, ovarian cancer Grandfather (Paternal) Cancer prostate Aunt Cancer 1 maternal aunt with ovarian cancer Breast cancer 2 aunts (maternal) with breast cancer Social History Smoking Status: Never smoker Hx Alcohol Use: Yes Alcohol type: hard liquor Hx Substance Use: No Preferred Language: Cook Islander Communication Ability: Effective Filling Station Attendant Required: No Beliefs That Will Affect Care: None Current Living Situation: Alone Other Information That Helps Us Care for You: No Feels Safe at Home: Yes Safety Concerns: Feels Safe At This Time Assistive Devices: None Review of Systems Review of Systems: Per HPI. No subjective fevers or chills. Physical Exam Physical Exam: The patient is alert and oriented. Mood and affect appeared normal. He answered all questions appropriately. HEENT: Pupils are equal and reactive to light and accommodation. Extraocular movements are intact. The sclerae are anicteric. Neuro: Cranial nerves intact Neck: Patient's neck is supple. He has palpable carotid pulses bilaterally without bruits on auscultation. There is no evidence of jugular venous distention. The thyroid is not enlarged. Lungs: Clear to auscultation bilaterally. He has good air movement without use of accessory muscles. No rales wheezes or rhonchi. Cardiac: Heart demonstrates a regular rate and rhythm. Normal S1 and S2. No murmurs on examination. Pulses: The patient has palpable radial pulses bilaterally that are equal in intensity Extremities: There was no evidence of hypoperfusion. There is no cyanosis or clubbing. Skin: I did not appreciate any rashes on examination today. Results & Data ([facility]) Vital Signs (Past 12 Hours) Vital Signs Temp Pulse Pulse Resp BP Pulse Ox 04/24/21 16:04 36.5 C 87 18 111/72 96 04/24/21 15:52 36.3 C L 87 18 109/71 96 04/24/21 14:28 94 H 04/24/21 11:21 36.3 C L 87 18 109/71 96 04/24/21 08:20 36.4 C L 86 20 130/84 97 04/24/21 07:00 85 Laboratory Results Abnormal Lab Results 10/04/24/21 04/24/21 20:16 07:24 07:24 WBC 9.27 RBC 4.72 Hgb 12.9 L Hct 41.1 L MCV 87.1 MCH 27.3 MCHC 31.4 L RDW Std Deviation 45.1 RDW Coeff of [place] 14.2 Plt Count 207 MPV 12.4 H Immature Gran % (Auto) 0.2 Neut % (Auto) 61.3 Lymph % (Auto) 27.3 [place] % (Auto) 8.5 Eos % (Auto) 2.4 Baso % (Auto) 0.3 Neut # (Auto) 5.68 Lymph # (Auto) 2.53 [place] # (Auto) 0.79 H Eos # (Auto) 0.22 Baso # (Auto) 0.03 Immature Gran # (Auto) 0.02 ESR Sodium 141 Potassium 3.3 L Chloride 106 Carbon Dioxide 25 Anion Gap 9.0 BUN 14 Creatinine 1.24 Est Cr Clr Drug Dosing 116.8 Est GFR ( Amer) 82.0 Est GFR (Non-Af Amer) 70.8 BUN/Creatinine Ratio 11.2 Glucose 95 Calcium 9.1 Total Bilirubin 1.3 H AST 31 ALT 43 Alkaline Phosphatase 66 Troponin I 0.018 Total Protein 6.5 Albumin 3.0 L Globulin 3.5 Albumin/Globulin Ratio 0.9 04/24/21 07:24 WBC RBC Hgb Hct MCV MCH MCHC RDW Std Deviation RDW Coeff of [place] Plt Count MPV Immature Gran % (Auto) Neut % (Auto) Lymph % (Auto) [place] % (Auto) Eos % (Auto) Baso % (Auto) Neut # (Auto) Lymph # (Auto) [place] # (Auto) Eos # (Auto) Baso # (Auto) Immature Gran # (Auto) ESR 5 Sodium Potassium Chloride Carbon Dioxide Anion Gap BUN Creatinine Est Cr Clr Drug Dosing Est GFR ( Amer) Est GFR (Non-Af Amer) BUN/Creatinine Ratio Glucose Calcium Total Bilirubin AST ALT Alkaline Phosphatase Troponin I Total Protein Albumin Globulin Albumin/Globulin Ratio Diagnostic Findings Echocardiogram obtained 04/23/2021 revealed severely reduced LV systolic function with an ejection fraction of 15-20%. Mild left ventricular dilation. Mild left atrial dilation. Mild mitral regurgitation. Chest CTA obtained at the time of admission did not reveal any evidence of pulmonary embolism. There was cardiomegaly. Small pleural effusions. A chest x-ray obtained the time admission not reveal any acute cardiopulmonary process. ECG Additional Comments: Normal sinus rhythm with likely limb lead reversal. There is some nonspecific ST and T-wave changes. PG Care Time/CCT Total # of Minutes Spent Total Time Spent with Patient: Total time spent is greater than 50% in coordination of care (as documented) at patient's floor/unit and/or counseling patient: Coding Level of Care Code 95480 Inpt Consult Level 4 Diagnoses Congestive heart failure I50.9 Cardiomyopathy I42.9 Mitral regurgitation I34.0
== END 2021-04-24 18:19 | disposition home or self-care (01) ==
LOC: ED 07:20 → 2W 07:20 → SUATTDRO 11:17 → 2W 12:48